=== PATIENT | male | born 1955 | race Caucasian/White ===

== ENCOUNTER → 2019-07-31 16:18 | Outpatient (CLI) | payer BC, SELFPAY ==
--- NOTE | 2019-07-31 16:22 | MR_ITS ---
PROCEDURE: MR LUMBAR SPINE WO CON CLINICAL INDICATION: LUMBAGO W/RT SIDE SCIATICA Low back pain with right-sided sciatica, right leg pain and foot numbness and tingling COMPARISON: No exams were available for comparison TECHNIQUE: Standard multiplanar multiecho sequences are performed without contrast. 3-D MIP and myelographic images are also rendered and reviewed FINDINGS: There is normal alignment. The spinal cord ends at the L1-L2 level. L1-L2: Unremarkable. L2-L3: Unremarkable. L3-L4: Unremarkable. L4-5: Unremarkable. L5-S1: Mild degenerative disc disease with bulging disc which is eccentric centrally and to the right along with facet and ligamentum hypertrophic change with resultant severe right-sided foraminal narrowing with impingement upon the exiting L5 nerve root. There is also mild impingement upon the right S1 nerve root. IMPRESSION: Degenerative disc disease at L5-S1 with bulging disc which is eccentric centrally and to the right along with facet and ligamentum hypertrophic change with resultant severe right-sided foraminal narrowing with impingement upon the exiting L5 nerve root. There is also mild impingement upon the right S1 nerve root No extruded herniated disc or canal stenosis Dictated by: Omkar Richards MD 08/01/2019 13:23 Electronically signed by Omkar Richards MD in [place] 08/01/2019 13:23
== END ==
PROVIDERS: PCP Internal Medicine; Visit Provider Internal Medicine
DX: M54.41 Lumbago with sciatica, right side (principal)
CPT/HCPCS: 72148; 76376

== ENCOUNTER → 2019-08-19 10:55 | Outpatient (POV) | payer BC, SELFPAY ==
[2019-08-19 11:17] VITALS: BP 152/78; PULSE 78; RESP 18; O2SAT 98; BMI 37.2
--- NOTE | 2019-08-26 15:03 | HMH.PMCON ---
Assessment and Plan (1) Degenerative disc disease Status: Chronic Qualifiers: Spinal region: lumbar Qualified Code(s): M51.36 - Other intervertebral disc degeneration, lumbar region Category: Medical (2) Lumbar radiculopathy Status: Chronic Category: Medical Code(s): M54.16 - Radiculopathy, lumbar region - Assessment and plan all Dx Assessment and Plan for all problems:: We will schedule an L4-L5 lumbar epidural steroid injection for the patient. I do believe it would be beneficial given his symptomology of the patient. I will follow-up with him after this reassess his symptoms at that time he is been instructed to call the office if he has any issues prior to his next appointment. Patient not currently on any anticoagulation therapy. Patient is continuing a home stretching program. Dr. Rajan has reviewed this note and agrees with this plan of care. This note was dictated using voice recognition software and may contain errors or omissions HPI - Data of Consult Patient: new to practice Consult date: 08/19/19 Requesting Physician: Ioana Castillo APRN Primary Care Provider: Roberto Osborne - Consult Narrative Reason for consult: Back pain History of present illness: Mr. Peters is a 63 year old male who presents today for consultation in regards to his low back pain. Patient has a recent MRI showing lumbar degenerative changes and nerve impingement in his lower spine. Patient has low back pain along with leg pain rating an 8 out of 10 today. Patient is tried and failed anti-inflammatories along with home stretching program. However he is continuing this. He is trying to stay as active as possible. He is not on any anticoagulation therapy. Overall patient is interested in injective therapy. I do believe an epidural may be beneficial for him. CC: Ioana Castillo APRN [facility] History I have reviewed the patient's past medical history: Yes Medical History: Reports:: Hyperlipidemia, Hypertension *Have you ever received a pneumonia vaccine?: Yes *Have you received a flu vaccine this season?: Yes Other Surgeries: Yes: Cardiac Catheterization Amputation: No Fractures: No - *Social History Smoking Status: Never smoker Alcohol Intake: never *Occupational Status:: other Housing: house Household Members: spouse *Travel in the last 8 weeks: None Family Hx:: Unable to obtain Review of Systems - Review of Systems ROS General: no recent weight change, no fever, no sleep disturbances Respiratory: no cough, no shortness of air, no recurring pulmonary infections Cardiovascular/Peripheral Vascular: No chest pain, No palpitations, no edema, no shortness of breath. Gastrointestinal: no new onset incontinence, normal bowel movements reported Genitourinary: no new onset incontinence Musculoskeletal: Back pain, leg pain Psychiatric: normal mood/ affect Neurological: [denies new onset weakness in extremities], [denies new onset balance issues] Objective Vital signs: Pulse Resp BP Pulse Ox 78 18 152/78 H 98 08/19/19 11:17 08/19/19 11:17 08/19/19 11:17 08/19/19 11:17 Narrative: Physical Exam General: Alert and oriented x3, no acute distress, pleasant and cooperative, [on room air] Lungs: Resps E/U, Symmetrical chest expansion, Eyes: PERRL Musculoskeletal: Flexion and extension of lumbar spine somewhat guarded secondary to pain, deep tendon reflexes normal, strength in upper and lower extremities [5/5], [abnormal gait noted] Neurological: speech clear, 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
== END ==
PROVIDERS: PCP Internal Medicine; Visit Provider Clinical Nurse Specialist Family Health
DX: M51.16 Intervertebral disc disorders with radiculopathy, lumbar region (principal)
CPT/HCPCS: 99202

== ENCOUNTER → 2019-09-30 10:39 | Outpatient (POV) | payer BC, SELFPAY ==
[2019-09-30 11:23] VITALS: BP 167/75; PULSE 65; RESP 18; O2SAT 98; BMI 35.1
--- NOTE | 2019-09-30 11:33 | HMH.PAINSOAP ---
[facility] Pain Management SOAP Note Subjective:: Patient is a pleasant 63-year-old white male who we are treating for low back pain with lumbar radiculopathy. Patient is following up after an L4-L5 lumbar epidural steroid injection. Patient states he got about 25% relief of his symptomology and his sharp pain has subsided. He still having a right leg numbness and and tingling. Patient and I discussed a transforaminal epidural he is interested in pursuing this. He rates his pain a 5 out of 10. He is not on any blood thinners. Patient is continuing a home stretching program. He is tried and failed other conservative measures including medications. He is on an anti-inflammatory. He has had pain for over 6 months. ROS General: no recent weight change, no fever, no sleep disturbances Respiratory: no cough, no shortness of air, no recurring pulmonary infections Cardiovascular/Peripheral Vascular: No chest pain, No palpitations, no edema, no shortness of breath. Gastrointestinal: no new onset incontinence, normal bowel movements reported Genitourinary: no new onset incontinence Musculoskeletal: Back pain, right leg pain Psychiatric: normal mood/ affect Neurological: [denies new onset weakness in extremities], [denies new onset balance issues] Objective:: Physical Exam General: Alert and oriented x3, no acute distress, pleasant and cooperative, [on room air] Lungs: Resps E/U, Symmetrical chest expansion, Eyes: PERRL Musculoskeletal: Flexion and extension of lumbar spine somewhat guarded secondary to pain, deep tendon reflexes normal, strength in upper and lower extremities [5/5], slightly antalgic gait noted, positive straight leg raise test on the right side at 30 degrees 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 I will follow-up with the patient afterwards reassess his symptoms at that time he is been instructed to call the office if he has any issues prior to his next appointment. If he does not get the relief that I suspect he will from this injection we discussed also potential other injections in the future. Dr. Rajan has reviewed this note and agrees with this plan of care. This note was dictated using voice recognition software and may contain errors or omissions [facility] History I have reviewed the patient's past medical history: Yes Medical History: Reports:: Hyperlipidemia, Hypertension Denies:: Diabetes Mellitus Type 1, Diabetes Mellitus Type 2 *Have you ever received a pneumonia vaccine?: Yes *Have you received a flu vaccine this season?: Yes Other Surgeries: Yes: Cardiac Catheterization Amputation: No Fractures: No - *Social History Smoking Status: Never smoker Alcohol Intake: never *Occupational Status:: other Housing: house Household Members: spouse *Travel in the last 8 weeks: None Family Hx:: Unable to obtain
== END ==
PROVIDERS: PCP Internal Medicine; Visit Provider Clinical Nurse Specialist Family Health
DX: M51.16 Intervertebral disc disorders with radiculopathy, lumbar region (principal)
CPT/HCPCS: 99212

== ENCOUNTER → 2019-12-13 10:39 | Outpatient (CLI) | payer BC, SELFPAY ==
--- NOTE | 2019-12-13 10:47 | CT_ITS ---
PROCEDURE: CT HEAD/BRAIN WO CON CLINICAL INDICATION: RT ARM TREMORS,LT SIDE FACE NUMBNESS,SLURRED SPEECH COMPARISON: No exams were available for comparison TECHNIQUE: Axial images obtained. All CT scans at the facility use one or more dose reduction, viz: automated exposure control, ma/kV adjustment per patient size (including targeted exams where dose is matched to indication, i.e. head), or iterative reconstruction technique. FINDINGS: No midline shift, mass effect, intracranial hemorrhage, hydrocephalus, or extra-axial fluid collection is evident. The calvarium has an unremarkable appearance. No mastoid effusion. No sinus air-fluid level. IMPRESSION: No acute intracranial finding Dictated by: Dr. Miguel Laughlin MD 12/13/2019 11:[address] Miguel Laughlin MD in [place] 12/13/2019 11:06
== END ==
PROVIDERS: PCP Internal Medicine; Visit Provider Internal Medicine
DX: R25.1 Tremor, unspecified (principal); R20.0 Anesthesia of skin; R47.81 Slurred speech
CPT/HCPCS: 70450

== ENCOUNTER → 2019-12-20 15:01 | Outpatient (CLI) | payer BC, SELFPAY ==
--- NOTE | 2019-12-20 15:10 | CA_ITS ---
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 Laterality: Bilateral Study Quality: Adequate Indications: Facial tingling Risk Factors Hypertension: Hyperlipidemia Doppler Spectral Velocity Analysis ECA (R) 107.70/18.70 cm/s ECA (L) 95.80/15.70 cm/s dICA (R) 50.50/16.30 cm/s dICA (L) 75.40/26.70 cm/s Pat (R) 47.50/19.20 cm/s Pat (L) 65.20/19.80 cm/s pICA (R) 46.60/16.70 cm/s pICA (L) 50.80/16.60 cm/s dCCA (R) 71.10/7.50 cm/s dCCA (L) 72.60/23.90 cm/s pCCA (R) 165.80/23.50 cm/s pCCA (L) 88.30/16.50 cm/s Vert (R) 24.10/ cm/s Vert (L) 39.80/13.60 cm/s ICA/CCA 0.70 ICA/CCA 1.00 Conclusion Duplex evaluation demonstrates stenosis of the right proximal internal carotid artery <20% with PSV <140 cm/sec, EDV <100 cm/sec, and IC/CC Ratio <4.0. Duplex evaluation demonstrates stenosis of the left proximal internal carotid artery in the range of 20-49% with PSV <140 cm/sec, EDV <100 cm/sec, and IC/CC Ratio <4.0, lower end of scale. Duplex evaluation demonstrates antegrade flow of the bilateral Vertebral Arteries. Electronically signed by : Omkar Richards MD 12/23/2019 18:27:47
== END ==
PROVIDERS: PCP Internal Medicine; Visit Provider Internal Medicine
DX: G45.9 Transient cerebral ischemic attack, unspecified (principal); R25.1 Tremor, unspecified
CPT/HCPCS: 93880

== ENCOUNTER → 2020-05-25 11:26 | Outpatient (CLI) | payer BC, SELFPAY ==
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
== END ==
PROVIDERS: PCP Internal Medicine; Visit Provider Internal Medicine
DX: R07.89 Other chest pain (principal)
CPT/HCPCS: 71046; 71100

== ENCOUNTER → 2020-08-03 10:35 | Outpatient (POV) | payer BC, SELFPAY ==
[2020-08-03 11:41] VITALS: BP 125/85; PULSE 85; RESP 18; O2SAT 98; BMI 34.9
--- NOTE | 2020-08-03 12:28 | HMH.PAINSOAP ---
[facility] Pain Management SOAP Note Subjective:: Patient is a pleasant 64-year-old white male who presents today for follow-up. Patient was last seen back in October. Patient had several epidural steroid injections which did give him some relief however his last transforaminal epidural injection gave him 90% relief for over 8 months. Patient would like to repeat a right-sided transforaminal epidural steroid injection at the L4-L5 L5-S1 space. Patient's not on any anticoagulation therapy. He rates his pain today 5 out of 10. Mostly in his back and right leg. ROS General: no recent weight change, no fever, no sleep disturbances Respiratory: no cough, no shortness of air, no recurring pulmonary infections Cardiovascular/Peripheral Vascular: No chest pain, No palpitations, no edema, no shortness of breath. Gastrointestinal: no new onset incontinence, normal bowel movements reported Genitourinary: no new onset incontinence Musculoskeletal: Back pain, leg pain Psychiatric: normal mood/ affect Neurological: [denies new onset weakness in extremities], [denies new onset balance issues] Objective:: Physical Exam General: Alert and oriented x3, no acute distress, pleasant and cooperative, [on room air] Lungs: Resps E/U, Symmetrical chest expansion, Eyes: PERRL Musculoskeletal: Flexion and extension of lumbar spine somewhat guarded secondary to pain, deep tendon reflexes normal, strength in upper and lower extremities [5/5], antalgic gait noted Neurological: 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 Given the efficacy of the last one I do believe that this would benefit him. I will follow-up with him after his injection reassess his symptoms at that time he has been instructed to call the office if he has any issues prior to his next appointment. Dr. Rajan has reviewed this note and agrees with this plan of care. This note was dictated using voice recognition software and may contain errors or omissions [facility] History I have reviewed the patient's past medical history: Yes Medical History: Reports:: Hyperlipidemia, Hypertension Denies:: Cancer, Diabetes Mellitus Type 1, Diabetes Mellitus Type 2, Seizures *Have you ever received a pneumonia vaccine?: Yes *Have you received a flu vaccine this season?: Yes Other Medical History: Denies: Blood Transfusion Reaction Other Surgeries: Yes: Cardiac Catheterization Amputation: No Fractures: No - *Social History Smoking Status: Never smoker Alcohol Intake: never *Occupational Status:: other Housing: house Household Members: spouse *Travel in the last 8 weeks: None Family Hx:: Unable to obtain
== END ==
PROVIDERS: PCP Internal Medicine; Visit Provider Clinical Nurse Specialist Family Health
DX: M51.16 Intervertebral disc disorders with radiculopathy, lumbar region (principal)
CPT/HCPCS: 99212

== ENCOUNTER 2020-08-14 11:32 | Day surgery (SDC) | payer BC, SELFPAY ==
[2020-08-14 12:07] VITALS: BP 141/69; PULSE 60; RESP 18; TEMP 36.7; O2SAT 95; BMI 35.4
[2020-08-14 12:30] VITALS: BP 132/74; PULSE 85; RESP 18; O2SAT 98
[2020-08-14 12:33] VITALS: BP 138/78; PULSE 85; RESP 18; O2SAT 98
--- NOTE | 2020-08-14 12:38 | P.PCN_ITS ---
- Procedure Date: 08/14/20 Time: 12:38 Anesthesiologist:: Gabriel Rajan MD Complications:: None Pre-procedure Diagnosis:: Degenerative disc disease of the lumbar spine with right leg lumbar radicular symptoms Post-procedure Diagnosis:: Same Indications for Procedure:: This patient is a pleasant 64-year-old white male who we are treating for low back pain and right leg radicular symptoms. He previously had a right-sided L4- 5 and L5-S1 transforaminal epidural steroid injection which gave him 8 months pain relief. His pain is now starting to return. We will plan on a repeat right L4-L5 and L5-S1 transforaminal epidural steroid injection under fluoroscopy today. Procedure Details:: Transforaminal epidural steroid injection Informed consent was obtained and the risk and benefits of the procedure was explained to the patient. Patient was taken to the procedure room. The low back was prepped using ChloraPrep. 22-gauge spinal needles were placed into the intervertebral foramen of L4-5 and L5-S1 on the right side. Needle placement was confirmed with dye. After this we injected 5 mL bupivacaine 0.25% and Depo- Medrol 40 mg into each right transforaminal epidural space of L4-5 and L5-S1. We used a total of 80 mg Depo-Medrol for both levels. Patient tolerated the procedure well with no complications. Plan and Disposition:: We will follow-up with this patient in 2 weeks. Will reevaluate his symptoms at that time.
[2020-08-14 12:44] VITALS: BP 147/83; PULSE 60; RESP 18; O2SAT 99
== END 2020-08-14 12:45 | disposition home or self-care (01) ==
LOC: SC.PAINP 11:34
PROVIDERS: PCP Internal Medicine; Visit Provider Anesthesiology
DX: M51.16 Intervertebral disc disorders with radiculopathy, lumbar region (principal); E78.5 Hyperlipidemia, unspecified; F41.9 Anxiety disorder, unspecified; Z82.49 Family history of ischemic heart disease and other diseases of the circulatory system; Z79.899 Other long term (current) drug therapy
CPT/HCPCS: 64483; 64484; J1030; Q9966

== ENCOUNTER → 2020-10-01 09:39 | Outpatient (POV) | payer BC, SELFPAY ==
[2020-10-01 09:55] VITALS: BP 135/88; PULSE 71; RESP 18; O2SAT 98; BMI 35.7
--- NOTE | 2020-10-01 10:06 | HMH.PAINSOAP ---
[facility] Pain Management SOAP Note Subjective:: Patient is a 64-year-old white male who presents today for follow-up. He has been treated for chronic low back pain with right leg pain. Patient recently underwent a transforaminal epidural steroid injection. Patient says that he did not get any relief following the injection. He says that his pain is now worse in comparison to before the injection. He does rate his pain an 8 out of 10 today. He has been taking large doses of ibuprofen for pain relief and has been advised by his primary care provider to stop taking anti-inflammatories. He has tried physical therapy with little to no relief. Patient says that his pain is progressively getting worse to the point he is now limping on the right leg. He has tenderness noted over his right SI joint that he reports to be very tender to palpation. The pain does radiate to his right buttock and right lateral thigh area crossing over medially into the right calf area and to the top of the foot. He says the pain is very bad with standing and walking as well as when he is laying down at night. Review of Systems General: No recent weight changes, no fever, no sleep disturbances Respiratory: No cough, no shortness of air, no recurring pulmonary infections Cardiovascular/peripheral vascular: No chest pain, no palpitations, no edema, no shortness of breath Gastrointestinal: No new onset incontinence, normal bowel movements reported Genitourinary: No new onset incontinence Musculoskeletal: Low back pain radiating into right buttock, right leg Psychiatric: Normal mood/affect Neurological: [Denies weakness in extremities], [denies balance issues] Objective:: Physical exam General: Alert and oriented x3, no acute distress, pleasant and cooperative, [on room air] Lungs: Respirations even and unlabored, symmetrical chest expansion Eyes: PERRL Musculoskeletal: Flexion and extension of lumbar spine somewhat guarded secondary to pain, deep tendon reflexes normal, strength in upper and lower extremities [5/5], [abnormal gait noted] positive Carlos's test, positive distraction test, positive compression test Neurological: 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 He does have tenderness noted over his right SI joint. He also has a positive Carlos's, compression, and distraction test. We will also give the patient a month of tramadol. He has been advised to stop taking anti-inflammatories. He understands we will not be able to give him any further medication after his injection. He is in agreement. Patient says he does not like taking opiates. He is concerned that tramadol will make him nauseous. He says he will try to take the medication to see if it helps, however. He does report that his has muscle relaxers that he will also try to take if the tramadol makes him sick. Patient has been educated that the medication has not been prescribed to him and may cause side effects. We will see him back after his SI injection to reassess his symptoms. He has been instructed to contact clinic if he has any concerns before his next appointment. The patient and I specifically discussed risk factors for COVID19. These risks include, but are not limited to age greater than 60, heart or lung disease, diabetes, immunosuppression, and travel. We also discussed NSAIDs may worsen COVID19 infection or symptoms. Patient should not use NSAIDs to treat COVID19 signs or symptoms. Patient was also informed that any type of corticosteroid of any form (oral or injection) will decrease the patient's immune system response and may increase the likelihood of COVID19 infection and symptoms. [facility] History I have reviewed the patient's past medical history: Yes Medical History: Reports:: Hyperlipidemia, Hypertension Denies:: Cancer, Diabetes Mellitus Type 1, Diabetes Sandra
== END ==
PROVIDERS: PCP Internal Medicine; Visit Provider Clinical Nurse Specialist Family Health
DX: M46.1 Sacroiliitis, not elsewhere classified (principal)
CPT/HCPCS: 99212

== ENCOUNTER 2020-10-05 15:35 | Day surgery (SDC) | payer BC, SELFPAY ==
[2020-10-05 15:54] VITALS: BP 158/93; PULSE 61; RESP 18; TEMP 36.8; O2SAT 98; BMI 36.5
--- NOTE | 2020-10-05 16:08 | HMH.PMPROC ---
- Procedure Date: 10/05/20 Time: 16:17 Anesthesiologist:: Ioana Castillo APRN Complications:: None Pre-procedure Diagnosis:: Sacroiliitis Post-procedure Diagnosis:: Same Indications for Procedure:: Patient is a pleasant 64-year-old white male who presents today for follow-up. He is being treated for chronic low back and right leg pain. He recently underwent a transforaminal epidural steroid injection. Patient states his radicular symptomology changed after this. He rates his pain today an 8 out of 10. He has a positive SI joint compression test, Matias test Carlos's test and distraction test on the right side. Procedure Details:: Informed consent was obtained and the risks and benefits of the procedure were explained to the patient. Patient was taken to the procedure room. Patient was placed prone on the procedure table. The [right] hip was prepped using ChloraPrep as a cleansing solution. The skin and subcutaneous tissues were anesthetized using lidocaine. Using fluoroscopic guidance I placed a 22-gauge spinal needle into the inferior aspect of the [right] SI joint. After this I injected 5 mL bupivacaine 0.25% and Depo-Medrol 40 mg into the [right] SI joint. The patient tolerated the procedure well with no complication. Plan and Disposition:: We will see the patient back in several weeks reassess his symptoms at that time he has been instructed to call the office if he has any issues prior to his next appointment. Dr. Rajan has reviewed this note and agrees with this plan of care. This note was dictated using voice recognition software and may contain errors or omissions
[2020-10-05 16:13] VITALS: BP 125/85; PULSE 74; RESP 18; O2SAT 98
[2020-10-05 16:14] VITALS: BP 129/87; PULSE 74; RESP 18; O2SAT 98
[2020-10-05 16:24] VITALS: BP 124/85; PULSE 67; RESP 18; O2SAT 98
== END 2020-10-05 16:26 | disposition home or self-care (01) ==
LOC: SC.PAINP 15:37
PROVIDERS: PCP Internal Medicine; Visit Provider Clinical Nurse Specialist Family Health
DX: M46.1 Sacroiliitis, not elsewhere classified (principal); I25.10 Atherosclerotic heart disease of native coronary artery without angina pectoris; E78.5 Hyperlipidemia, unspecified; I10 Essential (primary) hypertension; K21.9 Gastro-esophageal reflux disease without esophagitis; F41.9 Anxiety disorder, unspecified
CPT/HCPCS: 27096; G0260; J1040; Q9966

== ENCOUNTER → 2021-07-28 15:35 | Outpatient (CLI) | payer BC, SELFPAY ==
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
== END ==
LOC: RAD 15:37
PROVIDERS: PCP Internal Medicine; Visit Provider Internal Medicine
DX: M54.2 Cervicalgia (principal); R07.89 Other chest pain; V89.2XXA Person injured in unspecified motor-vehicle accident, traffic, initial encounter
CPT/HCPCS: 71046; 72050

== ENCOUNTER → 2021-11-10 11:29 | Outpatient (CLI) | payer BC, SELFPAY ==
[2021-11-10 14:03] LABS: Chloride 102 mmol/L (98-107); Potassium 3.8 mmoL/L (3.5-5.1); Sodium 138 mmol/L (136-145)
[2021-11-10 14:06] LABS: Alanine Aminotransferase 53 U/L (12-78); Albumin Level 4.9 g/dl (3.5-5.0); Albumin/Globulin Ratio 1.8 (1.1-1.8); Alkaline Phosphatase 72 U/L (38-126); Anion Gap 13.8 mEq/L (5-15); Aspartate Amino Transferase 67 U/L (17-59); Bilirubin,Total 0.7 mg/dl (0.2-1.3); Blood Urea Nitrogen 17 mg/dl (9-20); Calcium 9.1 mg/dl (8.4-10.2); Carbon Dioxide 26 mmol/L (22.0-30.0); Chol/HDL Ratio 3.3 (1-3.5); Cholesterol 164 mg/dl (140-200); Estimated Glomerular Filt Rate 97 ml/min (>60); GFR (African American) 118 ML/MIN (>60); Globulin 2.8 g/dL (1.3-3.2); Glucose 89 mg/dl (74-100); HDL Cholesterol 49 mg/dl (40-60); Total Protein,Serum 7.7 g/dl (6.3-8.2); Triglycerides 93 mg/dl (30-150); VLDL Cholesterol 19 mg/dL (0-40)
== END ==
PROVIDERS: Internal Medicine Cardiovascular Disease; Visit Provider Internal Medicine
DX: I25.10 Atherosclerotic heart disease of native coronary artery without angina pectoris (principal); I10 Essential (primary) hypertension; E78.5 Hyperlipidemia, unspecified; F41.9 Anxiety disorder, unspecified
CPT/HCPCS: 80053; 80061

== ENCOUNTER → 2022-10-04 12:23 | Outpatient (CLI) | payer BC, SELFPAY ==
[2022-10-04 13:44] LABS: Chloride 102 mmol/L (98-107)
[2022-10-04 13:45] LABS: Sodium 139 mmol/L (136-145)
[2022-10-04 13:47] LABS: Alanine Aminotransferase 87 U/L (12-78); Alkaline Phosphatase 71 U/L (38-126); Aspartate Amino Transferase 90 U/L (17-59); Bilirubin,Total 0.6 mg/dl (0.2-1.3); Blood Urea Nitrogen 12 mg/dl (9-20); Estimated Glomerular Filt Rate 85 ml/min (>60); GFR (African American) 103 ML/MIN (>60)
[2022-10-04 13:48] LABS: Albumin Level 4.9 g/dl (3.5-5.0); Albumin/Globulin Ratio 1.7 (1.1-1.8); Calcium 10.7 mg/dl (8.4-10.2); Carbon Dioxide 25 mmol/L (22.0-30.0); Chol/HDL Ratio 4.4 (1-3.5); Cholesterol 167 mg/dl (140-200); Globulin 2.9 g/dL (1.3-3.2); Glucose 93 mg/dl (74-100); HDL Cholesterol 38 mg/dl (40-60); Total Protein,Serum 7.8 g/dl (6.3-8.2); Triglycerides 138 mg/dl (30-150); VLDL Cholesterol 28 mg/dL (0-40)
[2022-10-04 13:59] LABS: Direct LDL Cholesterol 89.13 mg/dL (100-129)
[2022-10-04 14:25] LABS: Prostate Specific Ag Screen 0.4 ng/ml (0.0-4.0)
== END ==
LOC: LAB.DROPOF 12:24
PROVIDERS: PCP Internal Medicine; Visit Provider Internal Medicine
DX: D48.5 Neoplasm of uncertain behavior of skin (principal); I25.10 Atherosclerotic heart disease of native coronary artery without angina pectoris; I10 Essential (primary) hypertension; E78.5 Hyperlipidemia, unspecified; Z12.5 Encounter for screening for malignant neoplasm of prostate
CPT/HCPCS: 80053; 80061; G0103

== ENCOUNTER 2022-10-18 00:34 | Emergency (ER) | payer BC, SELFPAY ==
[2022-10-18 00:40] VITALS: BMI 28.7
[2022-10-18 00:53] VITALS: BP 140/81; PULSE 55; RESP 18; TEMP 36.8; O2SAT 98; BMI 34.9
[2022-10-18 00:53] LABS: Microscopic, Urine URINE MICROSCOPIC (MICROSCOPIC)
[2022-10-18 00:58] LABS: Appearance,Urine CLEAR (Clear); Blood, Urine 3+ (Negative); Color,Urine YELLOW (Yellow); Glucose,Urine (UA) Negative (Negative); Ketones,Urine TRACE (Negative); Leukocyte Esterase,Urine Negative (Negative); Nitrate,Urine Negative (Negative); Protein,Urine Negative (Negative); Specific Gravity, Urine >= 1.030 (1.005-1.030)
[2022-10-18 00:59] LABS: Basophils # 0.1 K/mm3 (0-0.2); Basophils % 1.3 % (0.1-2.0); Eosinophils # 0.2 K/mm3 (0.0-0.4); Hematocrit 42.6 % (42.0-52.0); Hemoglobin 14.4 g/dL (14.1-18.0); Lymphocytes # 1.8 K/mm3 (0.7-4.5); Mean Corpuscular HGB Conc 33.8 g/dL (31.8-35.4); Mean Corpuscular Hemoglobin 29.1 pg (27.0-31.2); Mean Corpuscular Volume 86.1 fl (80-94); Mean Platelet Volume 7.9 fl (7.4-10.4); Monocytes # 0.6 K/mm3 (0.1-1.0); Monocytes % 7.7 % (1.7-9.3); Neutrophils # 5.3 K/mm3 (1.8-7.8); Neutrophils % 66.1 % (37.0-80.0); Platelet Count 210 K/mm3 (142-424); Red Blood Count 4.95 M/mm3 (4.60-6.20); Red Cell Distribution Width 14.2 % (11.5-17.5)
[2022-10-18 01:00] VITALS: BP 123/66; PULSE 51; RESP 16; O2SAT 98
[2022-10-18 01:00] LABS: Bilirubin,Urine Negative (Negative)
[2022-10-18 01:01] LABS: Chloride 105 mmol/L (98-107); Potassium 3.7 mmoL/L (3.5-5.1); Sodium 140 mmol/L (136-145)
[2022-10-18 01:03] LABS: Alanine Aminotransferase 55 U/L (12-78); Aspartate Amino Transferase 54 U/L (17-59); Blood Urea Nitrogen 18 mg/dl (9-20); Creatinine Clearance Estimated 110 mL/min (50-200); Estimated Glomerular Filt Rate 75 ml/min (>60); GFR (African American) 91 ML/MIN (>60)
[2022-10-18 01:04] LABS: Albumin Level 4.6 g/dl (3.5-5.0); Albumin/Globulin Ratio 1.5 (1.1-1.8); Alkaline Phosphatase 71 U/L (38-126); Anion Gap 11.7 mEq/L (5-15); Bilirubin,Total 0.4 mg/dl (0.2-1.3); Calcium 9.2 mg/dl (8.4-10.2); Carbon Dioxide 27 mmol/L (22.0-30.0); Globulin 3.1 g/dL (1.3-3.2); Glucose 121 mg/dl (74-100); Total Protein,Serum 7.7 g/dl (6.3-8.2)
[2022-10-18 01:14] LABS: Bacteria,Urine 1+ /lpf; Mucus,Urine 1+ /lpf; RBC,Urine 20-50 #/hpf (0-3); WBC,Urine Occasional #/hpf (0-3)
[2022-10-18 01:31] VITALS: BP 117/60; PULSE 60; RESP 16; O2SAT 96
--- NOTE | 2022-10-18 01:32 | CT_ITS ---
PROCEDURE INFORMATION: Exam: CT Abdomen And Pelvis Without Contrast Exam date and time: 10/18/2022 1:40 AM Age: 66 years old Clinical indication: Abdominal pain; Localized; Patient HX: PT C/O left lower flank pain worsening tonight. States he has a history of kidney stones. ; Additional info: Flank pain, gross hematuria TECHNIQUE: Imaging protocol: Computed tomography of the abdomen and pelvis without contrast. Radiation optimization: All CT scans at this facility use at least one of these dose optimization techniques: automated exposure control; mA and/or kV adjustment per patient size (includes targeted exams where dose is matched to clinical indication); or iterative reconstruction. COMPARISON: MR LUMBAR SPINE WO CON 07/31/2019 4:33 PM FINDINGS: Heart: There is mild enlargement of the heart. Liver: Normal. No mass. Gallbladder and bile ducts: Normal. No calcified stones. No ductal dilation. Pancreas: Normal. No ductal dilation. Spleen: There are granulomas of the spleen. Adrenal glands: Normal. No mass. Kidneys and ureters: Multiple right kidney nonobstructing stones measuring up to 7 mm in size. Left kidney punctate nonobstructing stones. Mild left hydronephrosis and hydroureter secondary to a mid ureteral 4 mm stone. Stomach and bowel: Diverticulosis. Appendix: Normal appendix. Intraperitoneal space: Unremarkable. No free air. No significant fluid collection. Vasculature: Mild atherosclerosis. Lymph nodes: Unremarkable. No enlarged lymph nodes. Urinary bladder: Unremarkable as visualized. Reproductive: Unremarkable as visualized. Bones/joints: Degenerative changes of the spine. Soft tissues: Unremarkable. IMPRESSION: Mild left hydronephrosis secondary to a mid left ureteral 4 mm stone. Bilateral nephrolithiasis.
[2022-10-18 01:46] VITALS: BP 126/63; PULSE 54; RESP 18; O2SAT 98
[2022-10-18 02:00] VITALS: BP 125/71; PULSE 66; RESP 16; O2SAT 98
--- NOTE | 2022-10-18 03:11 | HMH.EDBACK ---
Discharge Plan Disposition Patient Disposition: Home, Self-Care Chief Complaint: Back Pain/Injury Prescriptions Prescriptions: No Action alprazolam 1 mg tablet 1 mg PO TID tizanidine 4 mg tablet 4 mg PO DAILY clopidogrel 75 mg tablet 75 mg PO DAILY tamsulosin 0.4 mg capsule 0.4 mg PO DAILY hydrochlorothiazide 25 mg tablet 25 mg PO DAILY rosuvastatin 20 mg tablet 20 mg PO DAILY Referrals Follow up/Referrals: Roberto Osborne MD [Primary Care Provider] - See instructions Chai Avery MD [Referring] - See instructions Clinical Impressions Clinical Impression: Renal colic Stand Alone Forms Stand Alone Forms: Work/School Release Instructions Patient Instructions: Kidney Stones -- Adult Discharge ED Provider: Jasiel Benavides Back Pain HPI General Chief Complaint: Back Pain/Injury Stated Complaint: possible kidney stone Time Seen by Provider: 10/18/22 03:11 Mode of Arrival: Ambulatory Source of Information: Patient and Medical Record Limitations: No Limitations Description of Symptoms (Recalled from ER Triage Doc. by RN): Pt c/o left lower back pain that radiates into his left flank. States that he has been having slight back pain for the prior two weeks, however, for the last 24 hours his pain has been more severe and he believes that he has blood in his urine. History of Present Illness HPI Narrative: acute lt lower pain and lt flank pain - hx of kidney stones - blood in urine Complaint: back pain Onset (ago): hour(s) Duration: intermittent Location: left flank Severity: moderate Associated symptoms: denies other symptoms Related Data Home Medications Medication Instructions Recorded Confirmed alprazolam 1 mg tablet 1 mg PO TID Anxiety 10/18/22 10/18/22 clopidogrel 75 mg tablet 75 mg PO DAILY hld 10/18/22 10/18/22 hydrochlorothiazide 25 mg tablet 25 mg PO DAILY htn 10/18/22 10/18/22 rosuvastatin 20 mg tablet 20 mg PO DAILY hld 10/18/22 10/18/22 tamsulosin 0.4 mg capsule 0.4 mg PO DAILY urinary retention 10/18/22 10/18/22 tizanidine 4 mg tablet 4 mg PO DAILY muscle relaxer 10/18/22 10/18/22 Allergies Allergy/AdvReac Type Severity Reaction Status Date / Time No Known Allergies Allergy Verified 10/05/20 15:56 [facility] Disclaimer: The information contained in this section may have been updated after the patient was seen, as this information can be updated by other users. 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 current occupational exposures/hazards: No caffeine: Yes ROS Obtained: Yes All systems reviewed & no additional complaints except as documented Physical Exam General General appearance: alert Head Head exam: normocephalic Eye Eye exam: Present PERRL and EOMI ENT ENT exam: Present mucous membranes moist Neck Neck exam: Present trachea midline Respiratory Respiratory exam: Absent respiratory distress Cardiovascular Cardiovascular exam: Present regular rate Abdominal Exam Abdominal exam: Present soft Extremities Exam Extremities exam: Present full ROM Neurological Exam Neurological exam: Present alert, oriented X3 and CN II-XII intact Psychiatric Psychiatric exam: Present normal affect Skin Skin exam: Absent rash Medical Decision Making Medical Records Medical records reviewed: Yes I reviewed the patient's medical records. [facility] Inquiry Pt receiving controlled substance: No Vital Signs: 10/18/22 00:53 10/18/22 01:00 10/18/22 01:31 Temperature 98.2 F Temperature Source Oral Pulse Rate 51 L 60 Pulse Rate [Apical] 55 L Respiratory Rate 18 16 16 Blood Pressure 123/66 117/60 Blood Pressure [Right Arm] 140/81 Blood Pressure Mean 90 79 Blood Pressure Mean [Right Arm] 100 Blood Pressure Source Blood Pre
[2022-10-18 03:37] VITALS: BP 125/70; PULSE 65; RESP 18; TEMP 36.6; O2SAT 98
== END 2022-10-18 04:34 | disposition home or self-care (01) ==
PROVIDERS: Emergency Provider Emergency Medicine; PCP Internal Medicine
DX: N23 Unspecified renal colic (principal)
CPT/HCPCS: 74176; 80053; 81001; 85025; 96361; 96374; 96375; 99285; J2405

== ENCOUNTER → 2023-07-24 10:37 | Outpatient (CLI) | payer OTHER, SELFPAY ==
[2023-07-24 11:09] LABS: Basophils # 0.1 K/mm3 (0-0.2); Basophils % 0.9 % (0.1-2.0); Eosinophils # 0.1 K/mm3 (0.0-0.4); Eosinophils % 1.8 % (0.1-12.0); Hematocrit 37.4 % (42.0-52.0); Hemoglobin 13.1 g/dL (14.1-18.0); Lymphocytes # 1.6 K/mm3 (0.7-4.5); Lymphocytes % 24.7 % (10-50); Mean Corpuscular HGB Conc 35.1 g/dL (31.8-35.4); Mean Corpuscular Hemoglobin 30.8 pg (27.0-31.2); Mean Corpuscular Volume 87.9 fl (80-94); Monocytes # 0.4 K/mm3 (0.1-1.0); Monocytes % 6.6 % (1.7-9.3); Neutrophils # 4.2 K/mm3 (1.8-7.8); Neutrophils % 65.9 % (37.0-80.0); Platelet Count 197 K/mm3 (142-424); Red Blood Count 4.26 M/mm3 (4.60-6.20); Red Cell Distribution Width 13.7 % (11.5-17.5); White Blood Count 6.4 K/mm3 (4.8-10.8)
[2023-07-24 12:34] LABS: Alanine Aminotransferase 63 U/L (12-78); Albumin Level 4.5 g/dl (3.5-5.0); Albumin/Globulin Ratio 1.5 (1.1-1.8); Alkaline Phosphatase 77 U/L (38-126); Anion Gap 15.6 mEq/L (5-15); Aspartate Amino Transferase 66 U/L (17-59); Bilirubin,Total 0.3 mg/dl (0.2-1.3); Blood Urea Nitrogen 14 mg/dl (9-20); Calcium 9.4 mg/dl (8.4-10.2); Carbon Dioxide 27 mmol/L (22.0-30.0); Chloride 100 mmol/L (98-107); Estimated Glomerular Filt Rate 97 ml/min (>60); GFR (African American) 117 ML/MIN (>60); Glucose 116 mg/dl (74-100); Potassium 3.6 mmoL/L (3.5-5.1); Sodium 139 mmol/L (136-145); Total Protein,Serum 7.5 g/dl (6.3-8.2)
== END ==
PROVIDERS: PCP Internal Medicine; Visit Provider Internal Medicine
DX: K62.5 Hemorrhage of anus and rectum (principal); I10 Essential (primary) hypertension; I25.10 Atherosclerotic heart disease of native coronary artery without angina pectoris
CPT/HCPCS: 80053; 85025

== ENCOUNTER 2023-07-28 11:35 | Day surgery (SDC) | payer MEDICARE, SELFPAY ==
[2023-07-26 17:38] VITALS: BMI 35.7
[2023-07-28] VITALS (7 sets, daily range): BP systolic 116–158; BP diastolic 56–82; PULSE 49–72; RESP 18; TEMP 36.2–36.4; O2SAT 96–967
--- NOTE | 2023-07-28 12:27 | EXP.ANES.CKL ---
[facility] Disclaimer: The information contained in this section may have been updated after the patient was seen, as this information can be updated by other users. 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 current occupational exposures/hazards: No caffeine: Yes [facility] Anesthesia Checklist Patient Identification Patient Identification: Arm Band and Verbal (Name & ) Structural Data Admitted From: Home Planned Operative Procedure/s: Colonoscopy Consent for Planned Operative Procedure(s) Verified: Yes NPO Status Verified Time NPO: 00:00 Additional verifications Anesthesia Reactions: No Hx Blood Transfusions: No Blood Transfusion Reaction: No Airway Assessment Mallampati Score:: Class II C-Spine Mobility Assessed: Yes TMJ Mobility Assessed: Yes Dentition: Good Dentition Neurological Assessment Level of Consciousness: Awake Hx Seizures: No Numbness or tingling in extremities: No Anesthesia Plan Anesthesia Risk discussed: Yes Anesthesia Plan: Verified ASA Class: II Anesthesia Type: MAC
--- NOTE | 2023-07-28 14:38 | HMH.SCOPE ---
Procedure: Date: 07/28/23 Patient Date of :: 1955 Procedure Performed:: Total colonoscopy to terminal ileum with numerous polypectomy using hot snare and cold snare with tattoo marking of colon at site of the mass and Hemoclip deployment Indications:: Patient is a 67-year-old male referred by Dr. Roberto Osborne for rectal bleeding. He was seen in the office a few days ago. I had previously seen the patient for screening colonoscopy which was performed in 2007. He had no adenomatous polyps and follow-up colonoscopy was recommended for 10 years. Patient has not had a subsequent colonoscopy. He states that several days ago beginning on approximately 07/21/2023 he developed rectal bleeding. This was characterized as relatively fresh blood as loose stool. He had no severe pain but had some lower abdominal cramping. He does normally take Plavix. He has been off of this. He states that the bleeding may be decreasing. He has had some blood mixed with stool. Etiology was unclear. I felt that colonoscopy was warranted as it had been 15 years since prior colonoscopy. This was to be arranged expeditiously given his symptomatology. Performing Provider:: Zack Barboza MD Referring Provider:: Roberto Osborne MD Sedation:: MAC sedation Procedure:: Patient history was obtained and appropriate physical examination was performed. Patient's medications and allergies were reviewed. Informed consent was obtained after explaining the benefits, alternatives, and risks of the procedure including, but not limited to, bleeding, perforation, missed lesions, and adverse reaction to anesthesia medications. Patient was transported to endoscopy procedure room. Patient was connected to monitoring devices. Throughout the procedure the patient's blood pressure, pulse, and oxygen saturations were monitored continuously. Patient identification and planned procedure were verified by the staff. Patient was positioned in lateral decubitus position. Digital anorectal exam was performed. Variable stiffness Olympus colonoscope was inserted and advanced under direct visualization to the cecum. Adequacy of the colonic preparation was noted. The colonoscope was advanced a short distance into the terminal ileum. The colonoscope was then slowly withdrawn while carefully examining the color, texture, anatomy, and integrity of the mucosoa circumferentially. Within the rectum retroflexion was performed. Colonoscope was then withdrawn. . . IMPRESSION: Colonoscope was inserted and advanced to the cecum. Upon insertion of the colonoscope there was noted to be multiple large complex polyps throughout the colon. Most notable was what appeared to be sigmoid colon mass. Due to the prolapsing nature of this it was difficult to determine the exact site but this appeared to be approximately 50 cm or greater from the anus. The colonoscope was advanced into the terminal ileum which appeared grossly normal. In the ascending colon there was a adenomatous appearing polyp removed with cold snare. At the hepatic flexure there was adenomatous sessile polyp removed with cold snare with residual tissue removed with biopsy forceps. In the proximal transverse colon just distal to the hepatic flexure there were a couple of moderate adenomatous polyps removed with hot snare. In the proximal descending colon there were a couple of adenomatous polyps removed with hot snare. Distal descending colon there were a couple of adenomatous polyps removed with hot snare. In the proximal sigmoid colon there was an adenomatous polyp removed with hot snare. In the presumed sigmoid colon at approximately 50 cm or more as previously mentioned there was what appeared to be adenomatous mass. This was proven to be actually 2 masses on adjacent pedunculated stalk. In a prolonged piecemeal fashion using hot snare ultimately all of the adenomatous tissue was excised from the pedunculated stalk. This required ret
== END 2023-07-28 16:00 | disposition home or self-care (01) ==
PROVIDERS: PCP Internal Medicine; Visit Provider Surgery
PROC: 0DJD8ZZ Inspection of Lower Intestinal Tract, Via Natural or Artificial Opening Endoscopic (ICD-10-PCS; CPT 45380; principal; 2023-07-28 13:00)
DX: D12.2 Benign neoplasm of ascending colon (principal); D12.3 Benign neoplasm of transverse colon; D12.4 Benign neoplasm of descending colon; D12.5 Benign neoplasm of sigmoid colon; D12.7 Benign neoplasm of rectosigmoid junction; K57.30 Diverticulosis of large intestine without perforation or abscess without bleeding
CPT/HCPCS: 45380; 45385; 88305; J2704

== ENCOUNTER 2023-09-25 11:52 | Emergency (ER) | payer MEDICARE, SELFPAY ==
[2023-09-25 11:53] VITALS: BP 138/77; PULSE 56; RESP 20; TEMP 36.4; O2SAT 96; BMI 33.1
--- NOTE | 2023-09-25 12:00 | ECG_ITS ---
APPROVED REPORT Exam: Resting ECG HR:57 bpm ECG Measurements Heart Rate 57 AXES PA 173 P 70 QRSd 121 QRS 61 QT 440 T 61 QTc 435 Conclusion SINUS BRADYCARDIA POSSIBLE RIGHT VENTRICULAR CONDUCTION DELAY [RSR (QR) IN V1/V2] BORDERLINE ECG UNCONFIRMED REPORT Electronically signed by : Lupillo Carter MD 09/25/2023 14:43:39
--- NOTE | 2023-09-25 12:19 | XR_ITS ---
FINAL REPORT TECHNIQUE: Single view chest CLINICAL HISTORY: SOA COMPARISON: 07/28/2021 FINDINGS: A single view of the chest was obtained. The heart and mediastinum are within normal limits. The lungs are clear. There is no pneumothorax. Osseous structures are unremarkable. IMPRESSION: No acute cardiopulmonary process. Reviewed, Interpreted and Dictated by Shar Steward MD Transcribed by Parul Nice Authenticated and [facility]
[2023-09-25 12:30] LABS: Basophils % 0.7 % (0.1-2.0); Eosinophils # 0.1 K/mm3 (0.0-0.4); Eosinophils % 1.5 % (0.1-12.0); Hematocrit 36.2 % (42.0-52.0); Hemoglobin 11.9 g/dL (14.1-18.0); Lymphocytes # 1.8 K/mm3 (0.7-4.5); Lymphocytes % 28.3 % (10-50); Mean Corpuscular HGB Conc 32.9 g/dL (31.8-35.4); Mean Corpuscular Hemoglobin 25.5 pg (27.0-31.2); Mean Corpuscular Volume 77.4 fl (80-94); Mean Platelet Volume 7.4 fl (7.4-10.4); Monocytes # 0.5 K/mm3 (0.1-1.0); Monocytes % 7.9 % (1.7-9.3); Neutrophils # 3.9 K/mm3 (1.8-7.8); Neutrophils % 61.6 % (37.0-80.0); Platelet Count 256 K/mm3 (142-424); Red Blood Count 4.68 M/mm3 (4.60-6.20); Red Cell Distribution Width 15.5 % (11.5-17.5); White Blood Count 6.3 K/mm3 (4.8-10.8)
--- NOTE | 2023-09-25 12:30 | PC.NURSE ---
RAD at [facility]
[2023-09-25 12:31] VITALS: BP 145/59; PULSE 57; RESP 15; O2SAT 95
[2023-09-25 12:39] LABS: Anion Gap 12.6 mEq/L (5-15); Blood Urea Nitrogen 12 mg/dl (9-20); Calcium 8.8 mg/dl (8.4-10.2); Carbon Dioxide 25 mmol/L (22.0-30.0); Chloride 103 mmol/L (98-107); Creatinine Clearance Estimated 3 mL/min (50-200); Estimated Glomerular Filt Rate 85 ml/min (>60); GFR (African American) 102 ML/MIN (>60); Glucose 103 mg/dl (74-100); Potassium 3.6 mmoL/L (3.5-5.1); Sodium 137 mmol/L (136-145)
[2023-09-25 12:40] LABS: Coronavirus 19, PCR Not Detected (NotDetected); Influenza A, PCR Not Detected (NotDetected); Influenza B, PCR Not Detected (NotDetected)
[2023-09-25 12:45] LABS: D-Dimer 0.46 ug/mL (0.0-0.5)
[2023-09-25 12:47] LABS: NT Pro Brain Natriuretic Pep. 32.6 pg/mL (0-125)
[2023-09-25 12:54] LABS: Troponin I < 0.01 ng/ml (0.00-0.034)
[2023-09-25 13:00] VITALS: BP 139/72; PULSE 53; RESP 17; O2SAT 94
[2023-09-25 13:31] VITALS: BP 143/76; PULSE 57; O2SAT 94
--- NOTE | 2023-09-25 13:41 | HMH.EDGENADL ---
Discharge Plan Disposition Patient Disposition: Home, Self-Care Condition: Good Prescriptions Prescriptions: No Action famotidine 20 mg tablet 20 mg PO DAILY amlodipine-benazepril 10-20 mg Capsule 1 cap PO DAILY alprazolam 1 mg tablet 1 mg PO TID clopidogrel 75 mg tablet 75 mg PO DAILY tamsulosin 0.4 mg capsule 0.4 mg PO DAILY hydrochlorothiazide 25 mg tablet 25 mg PO DAILY rosuvastatin 20 mg tablet 20 mg PO DAILY Referrals Follow up/Referrals: Roberto Osborne MD [Primary Care Provider] - See instructions Frederic Barbour MD [Staff Physician] - See instructions Activity Restrictions/Add. Instructions Additional Instructions/Restrictions: You were evaluated in the emergency department today. Please follow-up closely with cardiology as well as your primary care provider for further follow-up. Return to the emergency department for new or worsening symptoms. Clinical Impressions Clinical Impression: DO (dyspnea on exertion) Instructions Patient Instructions: DI for Shortness of Breath Discharge ED Provider: Cathie Patterson General Adult HPI General Chief complaint: Shortness of Breath/Dyspnea Stated complaint: SOA Time Seen by Provider: 09/25/23 12:02 Mode of Arrival: Family Vehicle Source of Information: Patient Limitations: No Limitations Description of Symptoms (Recalled from ER Triage Doc. by RN): Pt c/o increasing SOA and dyspnea for 3 days. History of Present Illness HPI narrative: This patient is a 67-year-old male with a history of lumbar radiculopathy and CAD on aspirin and Plavix presented to the emergency department for evaluation with concern for dyspnea on exertion. He states that he gets out of breath when walking very short distances, which is unusual for him. He denies any recent fevers, chills, cough, congestion, chest pain, abdominal pain, nausea, vomiting, or other concerns. He denies experiencing anything like this in the past. He has remote smoking history but notes that he has not smoked in the last several years. Related Data Home Medications Medication Instructions Recorded Confirmed alprazolam 1 mg tablet 1 mg PO TID Anxiety 10/18/22 09/25/23 clopidogrel 75 mg tablet 75 mg PO DAILY hld 10/18/22 09/25/23 hydrochlorothiazide 25 mg tablet 25 mg PO DAILY htn 10/18/22 09/25/23 rosuvastatin 20 mg tablet 20 mg PO DAILY hld 10/18/22 09/25/23 tamsulosin 0.4 mg capsule 0.4 mg PO DAILY urinary retention 10/18/22 09/25/23 famotidine 20 mg tablet 20 mg PO DAILY 07/25/23 09/25/23 amlodipine 10 mg-benazepril 20 mg 1 cap PO DAILY 07/28/23 09/25/23 capsule Allergies Allergy/AdvReac Type Severity Reaction Status Date / Time No Known Allergies Allergy Verified 08/03/23 11:09 [facility] Disclaimer: The information contained in this section may have been updated after the patient was seen, as this information can be updated by other users. 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
--- NOTE | 2023-09-25 13:50 | PC.NURSE ---
ambulated pt in [facility], states he does feel soa, oxygen 96 on MD ROBERTH aware
--- NOTE | 2023-09-25 14:10 | CA_ITS ---
APPROVED REPORT EXAM: Comprehensive 2D, Doppler, and color-flow Echocardiogram Electrophonic Engineer: Demi Jade RVT Ht: 5 ft 8 in Wt: 235lbs BSA: 2.19 BP: 128/72 mmHg Indications: DO,,HTN,HLD,EX SMOKER 2D Dimensions LA Volume 73.00 mL LA Volume Index 33.33 mL/m2 (M/F) 16-34 M-Mode Dimensions RVDd 2.96 cm (0.9-2.6) LA Diam 3.81 cm (1.9-4.0) LVDd 5.51 cm (3.5-5.7) LVDs 3.38 cm (3.5-5.7) IVSd 1.48 cm (0.6-1.1) PWd 0.53 cm (0.6-1.1) EF (Teich) 68.40% FS 38.70% EDV (Teich) 148.00 mL TAPSE 3.23 (<1.7) ESV (Teich) 46.80 mL LV Diastology E Decel Time 150 (160-240 msec) E/A Ratio 1.0 MED A' 8.50 cm/s LAT A' 7.40 cm/s Aortic Valve MALENA Index 0.70 cm2/m2 AoV Peak Keenan. 204.0 (50-130 cm/s) AO Peak GR. 16.70 mmHg AO Mean GR. 9.20 (<5 mmHg) AO VTI 44.9 (18-25 cm) MALENA (VTI) 1.56 (2.5-4.5 cm2) Mitral Valve MV E Max Keenan. 82.0 (40-130 cm/s) MV A Velocity 83.0 (40-130 cm/s) E/A Ratio 0.99 MV PHT 44.0 ms Pulmonary Valve PV Peak Velocity 82.0 (50-150 cm/s) Tricuspid Valve TR P. Velocity 194.00 cm/s RAP Estimate 10.00 mmHg RVSP 25.00 mmHg Left Ventricle The left ventricle is normal size. The left ventricular systolic function is normal. The left ventricular ejection fraction is within the normal range. There is increased LV wall thickness. There is normal LV segmental wall motion. Diastolic function is indeterminate. LVEF is 50-55%. Right Ventricle The right ventricle is moderately dilated. The right ventricular systolic function is normal. Atria The left atrium is mildly dilated. The right atrium is mildly dilated. Aortic Valve The aortic valve is mildly thickened. There is no aortic valvular stenosis. Trace aortic regurgitation. Mitral Valve The mitral valve leaflets are mildly thickened. No evidence of mitral valve stenosis. Mild mitral regurgitation. Tricuspid Valve The tricuspid valve leaflets are thin and pliable. Mild tricuspid regurgitation. RVSP is normal. Pulmonic Valve The pulmonary valve is normal in structure. Trace pulmonic regurgitation. Great Vessels The aortic root is normal in size. The ascending aorta is normal in size. IVC is normal in size and collapses >50% with inspiration. Pericardium There is no pericardial effusion. Other Information Study Quality: Fair Conclusion Normal biventricular systolic function. Moderately dilated RV. Mild biatrial dilatation. Mild MR. Mild TR. Electronically signed by : Anne Avalos MD 09/25/2023 23:51:54
[2023-09-25 15:18] VITALS: BP 133/77; PULSE 85; RESP 18; TEMP 36.8; O2SAT 97
== END 2023-09-25 15:20 | disposition home or self-care (01) ==
PROVIDERS: Emergency Provider Emergency Medicine; PCP Internal Medicine
DX: R06.02 Shortness of breath (principal); I25.10 Atherosclerotic heart disease of native coronary artery without angina pectoris; M54.16 Radiculopathy, lumbar region; Z79.02 Long term (current) use of antithrombotics/antiplatelets; Z79.82 Long term (current) use of aspirin; Z87.891 Personal history of nicotine dependence; R00.1 Bradycardia, unspecified; E78.5 Hyperlipidemia, unspecified
CPT/HCPCS: 71045; 80048; 83880; 84484; 85025; 85378; 87636; 93005; 93306; 99285

== ENCOUNTER 2023-10-20 08:41 | Day surgery (SDC) | payer MEDICARE, SELFPAY ==
[2023-10-20 08:49] VITALS: BMI 36.6
[2023-10-20 08:59] VITALS: BP 170/93; PULSE 59; RESP 19; TEMP 36.4; O2SAT 97
[2023-10-20 09:11] LABS: Basophils # 0.1 K/mm3 (0-0.2); Basophils % 1.2 % (0.1-2.0); Eosinophils # 0.1 K/mm3 (0.0-0.4); Eosinophils % 2.5 % (0.1-12.0); Hematocrit 39.1 % (42.0-52.0); Hemoglobin 12.8 g/dL (14.1-18.0); Lymphocytes # 1.7 K/mm3 (0.7-4.5); Lymphocytes % 33.9 % (10-50); Mean Corpuscular HGB Conc 32.6 g/dL (31.8-35.4); Mean Corpuscular Hemoglobin 24.3 pg (27.0-31.2); Mean Corpuscular Volume 74.3 fl (80-94); Mean Platelet Volume 8.4 fl (7.4-10.4); Monocytes # 0.4 K/mm3 (0.1-1.0); Monocytes % 8.7 % (1.7-9.3); Neutrophils # 2.7 K/mm3 (1.8-7.8); Neutrophils % 53.7 % (37.0-80.0); Platelet Count 250 K/mm3 (142-424); Red Blood Count 5.25 M/mm3 (4.60-6.20); Red Cell Distribution Width 17.1 % (11.5-17.5); White Blood Count 4.9 K/mm3 (4.8-10.8)
[2023-10-20 09:16] LABS: Chloride 102 mmol/L (98-107); Sodium 140 mmol/L (136-145)
[2023-10-20 09:19] LABS: Blood Urea Nitrogen 16 mg/dl (9-20); Calcium 8.9 mg/dl (8.4-10.2); Carbon Dioxide 28 mmol/L (22.0-30.0); Creatinine Clearance Estimated 114 mL/min (50-200); Estimated Glomerular Filt Rate 85 ml/min (>60); GFR (African American) 102 ML/MIN (>60); Glucose 118 mg/dl (74-100)
[2023-10-20] MEDS: diphenhydrAMINE 50MG/ML VIAL 50 MG IV (09:55)
--- NOTE | 2023-10-20 09:57 | SUR.PREOP ---
Case cancelled d/t insurance approval, will be rescheduled to later date. notified.
== END 2023-10-20 10:04 | disposition home or self-care (01) ==
LOC: CATHLAB 08:42
PROVIDERS: PCP Internal Medicine; Visit Provider Internal Medicine
DX: Z53.8 Procedure and treatment not carried out for other reasons (principal)
CPT/HCPCS: 80048; 85025

== ENCOUNTER 2023-10-30 08:33 | Day surgery (SDC) | payer MEDICARE, SELFPAY ==
[2023-10-30] VITALS (12 sets, daily range): BP systolic 116–196; BP diastolic 58–102; PULSE 51–66; RESP 17–20; TEMP 36.6–37; O2SAT 92–98; BMI 36.6
--- NOTE | 2023-10-30 | IR_ITS ---
APPROVED REPORT Patient Location: Outpatient [place]: THOM Govea RT (R) PROCEDURES Right heart catheterization Left heart catheterization Left ventriculogram Selective coronary angiogram INDICATION Pulmonary hypertension, Angina pectoris Informed consent was obtained prior to the procedure. COMPLICATIONS None Estimated Blood Loss: Less than 10 mls TECHNIQUE One percent lidocaine was used to anesthetize the right anterior aspect of the right wrist. The right radial artery was accessed via the Seldinger technique and a 6 Kosovan hydrophilic sheath was placed in the right radial artery. Following this one percent lidocaine was used to anesthetize the right anterior aspect of the right neck. The right internal jugular vein was accessed via the Seldinger technique and a 7 Kosovan sheath was placed in the right internal jugular vein. Following this an arterial cocktail was administered using 5000U heparin, 2.5 mg verapamil, 1mg Lidocaine and 800mcg nitroglycerin into the right radial sheath. A papa catheter was used to perform left heart catheterization left ventriculogram and selective coronary angiography while a Hilliard-Vicky catheter was used to perform right heart catheterization. Saturations were obtained in the pulmonary artery and right atrium. At the end of the procedure the arterial sheath was removed good hemostasis was achieved using Traclet band. Patient was transferred to the postop holding area in stable condition for venous sheath removal. ANGIOGRAPHIC RESULTS The left main artery Normal The left anterior descending artery Has a proximal concentric 30 to 40% stenosis with remaining vessel being widely patent The circumflex artery Gives rise to a moderate-sized ramus intermedius which has a proximal smooth 30% stenosis. The first obtuse marginal artery is moderate in size and has a 30 to 40% stenosis The right coronary artery Dominant and normal The SEPULVEDA ventriculogram reveals Normal 65% The left ventricular end-diastolic pressure 15 mmHg Right atrial pressure 12 mmHg Right ventricular pressure 25/12 mmHg Pulmonary artery pressure 22/12 mmHg Pulmonary artery occlusion pressure 12 mmHg IMPRESSION Mild to moderate proximal LAD disease as described above with additional moderate disease in the ramus intermedius and first obtuse marginal artery Normal ejection fraction Mild pulmonary hypertension Hemoglobin 12.8 Right atrial saturation 77% Pulmonary artery saturation 70% Aortic saturation 97% Cardiac output 8.5 L/min via Ijeoma Cardiac index 3.9 via [place]jeoma PLAN 1. Aggressive medical management for coronary disease with a goal LDL less than 55 to be achieved with high intensity statin 2. Recommend sleep study Electronically signed by : Frederic Barbour MD 10/30/2023 12:03:16
[2023-10-30] MEDS: diphenhydrAMINE 50MG/ML VIAL 50 MG IV (10:42)
[2023-10-30] MEDS: LIDOCAINE 1% 10ML MDV 20 ML IJ (10:42)
[2023-10-30] MEDS: NITROGLYCERIN 800MCG/8ML SYR (CATH LAB) 800 MCG IA (10:42)
[2023-10-30] MEDS: VERAPAMIL 2.5MG/ML 2ML VIAL 2.5 MG IV (10:42)
[2023-10-30] MEDS: HEPARIN 1,000 UNITS/500ML NS (CATH LAB) 3000 UNIT IV (10:42)
[2023-10-30] MEDS: 0.9 % SODIUM CHLORIDE 500 ML 25 ML IV (10:42)
[2023-10-30] MEDS: MIDAZOLAM HCL 1MG/1ML 5ML VIAL 1 MG IV (12:02)
[2023-10-30] MEDS: FENTANYL 100MCG/2ML VIAL 50 MCG IV (12:02)
[2023-10-30] MEDS: HEPARIN 1,000 UNITS/ML 10ML VIAL (CATH LAB) 10000 UNIT IV (12:03)
[2023-10-30 12:51] LABS: CATHL Arterial O2 SAT 78.4 % (90-100); CATHL Venous O2 SAT 77.4 % (75-80)
[2023-10-30] MEDS: IOPAMIDOL-370 (76%);100ML BOTTLE 50 ML IV (13:10)
== END 2023-10-30 15:04 | disposition home or self-care (01) ==
PROVIDERS: PCP Internal Medicine; Visit Provider Internal Medicine
DX: I27.21 Secondary pulmonary arterial hypertension (principal); R06.00 Dyspnea, unspecified; R94.31 Abnormal electrocardiogram [ECG] [EKG]; Z79.899 Other long term (current) drug therapy
CPT/HCPCS: 82810; 93460; 99152; 99153; C1725; C1769; C1894; J1644; Q9967

== ENCOUNTER 2024-01-19 12:27 | Outpatient (CLI) | payer MEDICARE, SELFPAY ==
[2024-01-19 14:42] LABS: Basophils # 0.1 K/mm3 (0-0.2); Basophils % 1.2 % (0.1-2.0); Eosinophils # 0.1 K/mm3 (0.0-0.4); Eosinophils % 1.4 % (0.1-12.0); Hematocrit 41.8 % (42.0-52.0); Hemoglobin 12.9 g/dL (14.1-18.0); Lymphocytes # 1.8 K/mm3 (0.7-4.5); Lymphocytes % 26.3 % (10-50); Mean Corpuscular HGB Conc 30.8 g/dL (31.8-35.4); Mean Corpuscular Hemoglobin 24.1 pg (27.0-31.2); Mean Corpuscular Volume 78.1 fl (80-94); Mean Platelet Volume 9.4 fl (7.4-10.4); Monocytes # 0.5 K/mm3 (0.1-1.0); Monocytes % 8.1 % (1.7-9.3); Neutrophils # 4.2 K/mm3 (1.8-7.8); Neutrophils % 63.1 % (37.0-80.0); Platelet Count 213 K/mm3 (142-424); Red Blood Count 5.35 M/mm3 (4.60-6.20); Red Cell Distribution Width 18.8 % (11.5-17.5); White Blood Count 6.7 K/mm3 (4.8-10.8)
[2024-01-19 15:54] LABS: Alanine Aminotransferase 63 U/L (12-78); Albumin Level 4.5 g/dl (3.5-5.0); Albumin/Globulin Ratio 1.5 (1.1-1.8); Alkaline Phosphatase 75 U/L (38-126); Anion Gap 11.9 mEq/L (5-15); Aspartate Amino Transferase 73 U/L (17-59); Bilirubin,Total 0.5 mg/dl (0.2-1.3); Blood Urea Nitrogen 15 mg/dl (9-20); Calcium 9.1 mg/dl (8.4-10.2); Carbon Dioxide 28 mmol/L (22.0-30.0); Chloride 104 mmol/L (98-107); Chol/HDL Ratio 5.1 (1-3.5); Cholesterol 183 mg/dl (140-200); Estimated Glomerular Filt Rate 97 ml/min (>60); GFR (African American) 117 ML/MIN (>60); Glucose 94 mg/dl (74-100); HDL Cholesterol 36 mg/dl (40-60); Potassium 3.9 mmoL/L (3.5-5.1); Sodium 140 mmol/L (136-145); Total Protein,Serum 7.5 g/dl (6.3-8.2); Triglycerides 144 mg/dl (30-150); VLDL Cholesterol 29 mg/dL (0-40)
[2024-01-19 16:08] LABS: Direct LDL Cholesterol 107.65 mg/dL (100-129)
[2024-01-19 16:27] LABS: Prostate Specific Ag Screen 0.5 ng/ml (0.0-4.0)
[2024-01-19 17:19] LABS: Iron 54 ug/dL (49-181)
[2024-01-19 17:28] LABS: Total Iron Binding Capacity 458 ug/dL (261-462)
== END 2024-01-19 23:59 | disposition home or self-care (01) ==
LOC: LAB.DROPOF 12:28
PROVIDERS: PCP Internal Medicine; Visit Provider Internal Medicine
DX: I11.9 Hypertensive heart disease without heart failure (principal); D64.9 Anemia, unspecified; Z12.5 Encounter for screening for malignant neoplasm of prostate; E78.5 Hyperlipidemia, unspecified; I25.10 Atherosclerotic heart disease of native coronary artery without angina pectoris; F41.9 Anxiety disorder, unspecified; M47.27 Other spondylosis with radiculopathy, lumbosacral region; M15.0 Primary generalized (osteo)arthritis; Z87.891 Personal history of nicotine dependence
CPT/HCPCS: 80053; 80061; 83540; 83550; 85025; G0103

== ENCOUNTER 2024-10-29 13:28 | Outpatient (CLI) | payer MEDICARE, SELFPAY ==
[2024-10-29 12:26] LABS: Basophils # 0.1 K/mm3 (0-0.2); Basophils % 1.5 % (0.1-2.0); Eosinophils # 0.1 K/mm3 (0.0-0.4); Eosinophils % 2.4 % (0.1-12.0); Hematocrit 45.3 % (42.0-52.0); Hemoglobin 14.8 g/dL (14.1-18.0); Lymphocytes # 1.9 K/mm3 (0.7-4.5); Lymphocytes % 31.9 % (10-50); Mean Corpuscular HGB Conc 32.7 g/dL (31.8-35.4); Mean Corpuscular Volume 85.6 fl (80-94); Mean Platelet Volume 10.5 fl (7.4-10.4); Monocytes # 0.7 K/mm3 (0.1-1.0); Monocytes % 11.7 % (1.7-9.3); Neutrophils % 52.2 % (37.0-80.0); Platelet Count 161 K/mm3 (142-424); Red Blood Count 5.29 M/mm3 (4.60-6.20); Red Cell Distribution Width 13.7 % (11.5-17.5); White Blood Count 5.8 K/mm3 (4.8-10.8)
[2024-10-29 12:50] LABS: Albumin Level 4.9 g/dl (3.5-5.0); Chloride 102 mmol/L (98-107); Potassium 3.9 mmoL/L (3.5-5.1); Sodium 135 mmol/L (136-145)
[2024-10-29 12:52] LABS: Blood Urea Nitrogen 16 mg/dl (9-20); Estimated Glomerular Filt Rate 97 ml/min (>60); GFR (African American) 117 ML/MIN (>60)
[2024-10-29 12:53] LABS: Alanine Aminotransferase 90 U/L (12-78); Albumin/Globulin Ratio 1.7 (1.1-1.8); Alkaline Phosphatase 88 U/L (38-126); Anion Gap 11.9 mEq/L (5-15); Aspartate Amino Transferase 105 U/L (17-59); Bilirubin,Total 0.8 mg/dl (0.2-1.3); Calcium 9.5 mg/dl (8.4-10.2); Carbon Dioxide 25 mmol/L (22.0-30.0); Cholesterol 171 mg/dl (140-200); Globulin 2.9 g/dL (1.3-3.2); Glucose 98 mg/dl (74-100); HDL Cholesterol 34 mg/dl (40-60); Total Protein,Serum 7.8 g/dl (6.3-8.2); Triglycerides 188 mg/dl (30-150); VLDL Cholesterol 38 mg/dL (0-40)
[2024-10-29 13:04] LABS: Direct LDL Cholesterol 100.09 mg/dL (100-129)
== END 2024-10-29 23:59 | disposition home or self-care (01) ==
LOC: LAB.DROPOF 13:29
PROVIDERS: PCP Internal Medicine; Visit Provider Internal Medicine
DX: E78.5 Hyperlipidemia, unspecified (principal); I10 Essential (primary) hypertension; I25.10 Atherosclerotic heart disease of native coronary artery without angina pectoris; Z87.891 Personal history of nicotine dependence
CPT/HCPCS: 80053; 80061; 85025

== ENCOUNTER 2024-11-06 07:08 | Outpatient (CLI) | payer MEDICARE, SELFPAY ==
--- NOTE | 2024-11-06 07:09 | US_ITS ---
FINAL REPORT TECHNIQUE: Ultrasound images of the abdomen were obtained. CLINICAL HISTORY: Epigastric pain, elevated liver enzymes COMPARISON: None FINDINGS: The pancreas is unremarkable. There is fatty infiltration of the liver. There is a small echogenic focus in the gallbladder consistent with a polyp. The gallbladder wall measures 3 mm. The common duct is normal measuring 4 mm. The right kidney measures 12.8 cm in length and is normal in echogenicity without hydronephrosis. There is a 1.2 cm cyst in the right kidney. The left kidney measures 11.4 cm in length and is normal in echogenicity without hydronephrosis. The spleen is unremarkable. The aorta is normal in caliber. The vena cava is unremarkable. IMPRESSION: Gallbladder polyp. Right kidney cyst. Reviewed, Interpreted and Dictated by Shar Steward MD Transcribed by Brittani Odonnell Authenticated and [facility]
== END 2024-11-06 23:59 | disposition home or self-care (01) ==
LOC: RAD 07:09
PROVIDERS: PCP Internal Medicine; Visit Provider Internal Medicine
DX: R10.13 Epigastric pain (principal); R74.8 Abnormal levels of other serum enzymes
CPT/HCPCS: 76700

== ENCOUNTER 2025-05-21 09:53 | Outpatient (CLI) | payer MEDICARE, SELFPAY ==
[2025-05-21 13:45] LABS: Hematocrit 46.5 % (42.0-52.0); Hemoglobin 14.8 g/dL (14.1-18.0); Immature Granulocytes % 0.3 %; Mean Corpuscular HGB Conc 31.8 g/dL (31.8-35.4); Mean Corpuscular Hemoglobin 28.2 pg (27.0-31.2); Mean Corpuscular Volume 88.6 fl (80-94); Nucleated Red Blood Cells % 0 %; Platelet Count 183 K/mm3 (142-424); Red Blood Count 5.25 M/mm3 (4.60-6.20); Red Cell Distribution Width-SD 44.3 fL; White Blood Count 5.8 K/mm3 (4.8-10.8)
[2025-05-21 15:02] LABS: Alanine Aminotransferase 96 U/L (12-78); Albumin Level 4.8 g/dl (3.5-5.0); Albumin/Globulin Ratio 1.5 (1.1-1.8); Alkaline Phosphatase 105 U/L (38-126); Amylase 57 U/L (30-110); Anion Gap 13.0 mEq/L (5-15); Aspartate Amino Transferase 123 U/L (17-59); Bilirubin,Total 0.8 mg/dl (0.2-1.3); Blood Urea Nitrogen 13 mg/dl (9-20); Calcium 9.2 mg/dl (8.4-10.2); Carbon Dioxide 28 mmol/L (22.0-30.0); Chloride 103 mmol/L (98-107); Cholesterol 180 mg/dl (140-200); Creatinine,Serum 0.90 mg/dl (0.66-1.25); Estimated Glomerular Filt Rate 84 ml/min (>60); GFR (African American) 102 ML/MIN (>60); Globulin 3.1 g/dL (1.3-3.2); Glucose 94 mg/dl (74-100); HDL Cholesterol 37 mg/dl (40-60); Potassium 4.0 mmoL/L (3.5-5.1); Sodium 140 mmol/L (136-145); Total Protein,Serum 7.9 g/dl (6.3-8.2); Triglycerides 197 mg/dl (30-150)
[2025-05-21 15:46] LABS: Hepatitis C Ab Qual. W/ RFX NEGATIVE (Negative)
[2025-05-22 08:14] LABS: Hepatitis B Core Antibody, IgM Negative (Negative); Hepatitis B Surface Antigen Negative (Negative)
--- OUTSIDE RECORDS SUMMARY | 2025-05-23 09:55 | XMS_ITS | Clinical Summary ---
Author Organization [facility] [place] [id number] Care Team Providers Care Therapeutic Recreation Specialist Name Role Phone Unavailable Primary Care Provider Unavailabl e Social History Tobacco Use Types Packs/Day Years Used Date Smoking Tobacco: Never Assessed Sex and Gender Information Value Date Recorded Sex Assigned at Not on file Legal Sex Male 10:56 PM EDT Gender Identity Not on file Sexual Orientation Not on file Plan of Treatment Health Maintenance Due Date Last Done Comments Annual Wellness Exam 1960 Hepatitis C Screening 1975 DTaP/TDaP/Td (1 - Tdap) 1976 Cologuard 2002 Colon Cancer Screening 2002 Colonoscopy 2002 FIT 2002 Sigmoidoscopy 2002 Virtual Colonography 2002 Pneumococcal Vaccine 50+ (1 of 1 - PCV) 2007 Zoster (1 of 2) 2007 COVID-19 Vaccine (2023-2 5 season) 2024 Influenza Vaccine (#1) 2025 Hepatitis B Vaccine Aged Out No longe r eligible based on patient's age to complete this topic Meningococcal B Vaccine Aged Out No l onger eligible based on patient's age to complete this topic
--- OUTSIDE RECORDS SUMMARY | 2025-05-23 09:55 | XMS_ITS | Clinical Summary ---
Author Organization [facility] yste Address [address] [place] [id number] Care Team Providers Care Vp Design Name Role Phone Unavailable Primary Care Provider Unavailabl e Social History Tobacco Use Types Packs/Day Years Used Date Smoking Tobacco: Never Assessed Abuse Screen Answer Date Recorded Unsafe at Home or Work/School Not on file Feels Threatened by Someone? Not on file 06/2023 Does Anyone Keep You from Co ntacting Others or Doint Things Outside the Home? Not on file 07/17/2023 Physical Sign of Abuse Present Not on file 1 Housing Stability Answer Date Recorded Current Living Arrangements Not on file 06/2023 Potentially Unsafe Housing Conditions Not on gulshan e 07/17/2023 Family and Community Support Answer Jonathon e Recorded Help with Day-to-Day Activities Not on file 07/17/2023 Lonely or Isolated Not on file 07/17/2023 Employment Answer Date Recorded Do you want help finding or keeping work or a merlin b? Not on file 07/17/2023 Disabilities Answer Date Recorded Concentrating, Remembering, or Making Decisions Difficulty Not on file 07/17/2023 Doing Errands Independently Difficulty Not on fi le 07/17/2023 Education Answer Date Recorded Help with school or training? Not on file Preferred Language Not on file 07/17/2023 Sex and Gender Information Value Date Recorded Sex Assigned at Not on file Legal Sex Male 1:02 PM EDT Gender Identity Not on file Sexual Orientation Not on file Plan of Treatment Health Maintenance Due Date Last Done Comments ANNUAL PHYSICAL 1955 HEPATITIS C SCREENING 1957 TDAP/TD VACCINES (1 - Tdap) 1976 COLOGUARD 2002 COLON CANCER SCREENING 5 YEAR SIGMOIDOSCOPY 2002 COLONOSCOPY 2002 [address] CANCER SCREENING 2002 CT COLONOGRAPHY 2002 FECAL OCCULT BLOOD TEST 2002 FIT Testing (1 year) 2002 Pneumococcal Vaccine 50+ (1 of 1 - PCV) 2007 ZOSTER VACCINE (1 of 2) 2007 AAA SCREEN ONCE 2022 COVID-19 Vaccine ( - season) 2024 INFLUENZA VACCINE 07/09/2025
== END 2025-05-21 23:59 | disposition home or self-care (01) ==
LOC: LAB.DROPOF 05-23 09:53
PROVIDERS: PCP Internal Medicine; Visit Provider Internal Medicine
DX: E78.5 Hyperlipidemia, unspecified (principal); R74.8 Abnormal levels of other serum enzymes; R10.13 Epigastric pain; I10 Essential (primary) hypertension; Z12.5 Encounter for screening for malignant neoplasm of prostate
CPT/HCPCS: 80053; 80061; 82150; 85025; 86705; 86803; 87340; G0103

== ENCOUNTER 2025-05-26 07:13 | Outpatient (CLI) | payer MEDICARE, SELFPAY ==
--- OUTSIDE RECORDS SUMMARY | 2025-05-26 07:15 | XMS_ITS | Clinical Summary ---
Author Organization [facility] yste Address [address] [place] [id number] Care Team Providers Care Boat Outfitter Name Role Phone Unavailable Primary Care Provider [...]
--- OUTSIDE RECORDS SUMMARY | 2025-05-26 07:15 | XMS_ITS | Clinical Summary ---
Author Organization [facility] [place] [address] Care Team Providers Care Digital Forensic Analyst Name Role Phone Unavailable Primary Care Provider [...]
--- NOTE | 2025-05-26 07:30 | US_ITS ---
FINAL REPORT TECHNIQUE: Ultrasound images of the abdomen were obtained. CLINICAL HISTORY: Epigastric and right upper quadrant pain COMPARISON: None FINDINGS: The pancreas is obscured by bowel gas. The liver is unremarkable. The gallbladder demonstrates a small amount of sludge in the gallbladder. The common duct is normal measuring 4 mm in diameter. The right kidney measures 11.8 cm in length and is without hydronephrosis. There is a hypoechoic 1 x 1.3 cm right renal cyst present. There are small echogenic foci in the right kidney that may represent tiny renal stones. The left kidney measures 11.5 cm in length and is without hydronephrosis. There is a 1.3 x 1.4 cm left renal cyst. There is an adjacent echogenic focus measuring 1.2 cm in size, that may represent a renal stone. The spleen is unremarkable. The aorta is normal in caliber. The vena cava is unremarkable. IMPRESSION: Sludge is present in the gallbladder. There are small echogenic foci in each kidney, and CT of the abdomen and pelvis may help to evaluate the described calcifications. Reviewed, Interpreted and Dictated by Shar Steward MD Transcribed by Karol Gerard Authenticated and [facility]
== END 2025-05-26 23:59 | disposition home or self-care (01) ==
PROVIDERS: PCP Internal Medicine; Visit Provider Internal Medicine
DX: R93.422 Abnormal radiologic findings on diagnostic imaging of left kidney (principal); R93.421 Abnormal radiologic findings on diagnostic imaging of right kidney; R93.2 Abnormal findings on diagnostic imaging of liver and biliary tract; R10.13 Epigastric pain; R10.11 Right upper quadrant pain
CPT/HCPCS: 76700

== ENCOUNTER 2025-09-19 06:45 | Outpatient (CLI) | payer OTHER, SELFPAY ==
--- NOTE | 2025-09-19 | CT_ITS ---
FINAL REPORT TECHNIQUE: Axial CT images were performed through the head. Coronal and sagittal reformatted images were submitted. This study was performed with techniques to keep radiation doses as low as reasonably achievable (ALARA). Individualized dose reduction techniques using automated exposure control or adjustment of mA and/or kV according to the patient's size were employed. CLINICAL HISTORY: SUBDURIAL HEMATOMA COMPARISON: 12/13/2019 FINDINGS: CT HEAD: Mild global atrophy is present. There is no evidence of hemorrhage. There is no mass or edema identified. There is no abnormal extra-axial fluid seen. Mucoperiosteal thickening in the left maxillary sinus. IMPRESSION: Mild global atrophy, with no acute intracranial process. Reviewed, Interpreted and Dictated by Shar Steward MD Transcribed by Karol Gerard Authenticated and [facility]
--- OUTSIDE RECORDS SUMMARY | 2025-09-19 06:49 | XMS_ITS | Clinical Summary ---
Author Organization [facility] yste Address [address] [place] [id number] Care Team Providers Care Social Insurance Analyst Name Role Phone Unavailable Primary Care [...] of 2) 2007 AAA SCREEN ONCE 2022 INFLUENZA VACCINE 05/09/2025 COVID-19 Vaccine ( - season) 2025
--- OUTSIDE RECORDS SUMMARY | 2025-09-19 06:49 | XMS_ITS | Clinical Summary ---
Author Organization [facility] Address [address] [place] [address] Phone Care Team Providers Care Admissions Gate Attendant Name Role Phone Roberto Osborne MD Primary Care Provider [phone] Allergies Active Allergy Reactions Criticality Noted Date Comments Girma Inhibitors Anaphylaxis High 06/20/2025 angioedema Medications ALPRAZolam (XANAX) 1 mg Oral Tablet Take 1 mg by mouth 3 times daily as needed for Other (anxiety). Active amLODIPine-irene zepril (LOTREL) 10-40 mg Oral Capsule Take 1 Capsule by mouth daily. Active pantoprazole (PROTONIX) 40 mg Oral Tablet, Delayed Release (E.C.) Take 40 mg by mouth daily. Active tamsulosin (FLOMAX) 0.4 mg Oral Capsule Take 0.4 mg by mouth daily. Active rosuvastatin (CRESTOR) 40 mg Oral Tablet Take 40 mg by mouth daily. Active acetaminophen 325 mg Oral Tab Take 2 Tablets by mouth every 6 hours as needed for Pain or Headaches. 06/23/2025 Active aspirin 81 mg Oral Tablet, Chewable Take 1 Tablet by mouth daily. 07/16/2025 Active Active Problems Problem Noted Date Diagnosed Date Carotid artery plaque, bilateral 06/22/2025 Overview (06/22/2025): CUS 06/22/2025 There is a right proximal internal carotid artery mildly obstructive lesion noted, with an estimated 1-39% stenosis. * There is a left proximal internal carotid artery mildly obstructive lesion noted, with an estimated 1-39% stenosis. * There is a right proximal external carotid artery lesion with >50% stenosis. hx of PAD/CAD = he has never had an event, surgery/procedure. Was just started on bASA and Plavix, but has non-critical ds. He does NOTneed PLAVIX at d/c; just a bASA. Coronary artery disease invo lving [place] coronary artery of [place] heart without angina pectoris 06/22/2025 Overview (06/22/2025): 06/2025 per patient = non-critical, non-obstr ds. No stents/procedures. Reports not available in EPIC. hx of PAD/CAD = he has never had an event, surgery/procedure. Was just started on bASA and Plavix, but has non-critical ds. He does NOTneed PLAVIX at d/c; just a bASA. Angioedema of tongue 06/20/2025 Lumbar radiculopathy 06/20/2025 Essential hypertension 06/20/2025 Fall, initial encounter 06/16/2025 Subdural hematoma 06/16/2025 Encounters Date Type Department Care Team Description 07/10/2025 1:37 PM EDT - 07/10/2025 11:59 PM EDT Hospital Encounter [facility] [address] [place] [address] Carla Antoine APRN Subdural hematoma (HCC) Discharge Disposition: Home or Self Care 06/16/2025 10:43 AM EDT - 06/23/2025 11:21 AM EDT Hospital Encounter [facility]G [address] [place] [address] Steve Nunes MD Wyenandt, Robert L Jr., MD Discharge Disposition: Home or Self Care from Last 3 Months Immunizations Immunization Administration Dates Next Due Tdap 06/16/2025 Medical History Medical History Date Comments CAD (coronary artery disease) Social History Tobacco Use Types Packs/Day Years Used Date Smoking Tobacco: Never Smokeless Tobacco: Never Tobacco Cessation:Counseling Given: Not Answered [facility] Utilities Answer Date Recorded In the past 12 months has [employer], gas, oil, or water [employer] threatened to shut off services in your home? No 06/17/2025 Overall Financial Resource Strain (CARDIA) Answe r Date Recorded How hard is it for you to pa y for the very basics like food, housing, medical care, and heating? Not hard at all 06/17/2025 PHQ-2 Answer Date Recorded PHQ-2 Total Score 0 06/17/2025 [facility] - Occupational Stress Questionnaire Answer Date Recorded Do you feel stress - tense, restless, nervous, or anxious, or unable to sleep at night because your mind is troubled all the time - these days? Not at all 06/17/2025 Exercise Vital Sign Answer Date Recorde d On average, how many days pe r week do you engage in moderate to strenuous exercise (like a brisk walk)? 0 days 06/17/2025 On average, how many minutes do you engage in exercise at this level? 0 min 06/17/2025 Hunger Vital Sign Answer Date Recorded Within the past 12 months, y ou worried that your food would run out before you got the money to buy more. Never true 06/17/20 25 Within the past 12 months, t he food you bought just didn't last and you didn't have money to get more. Never true 06/17/2025 [facility] IP Transportation Answer D ate Recorded In the past 12 months, has l ack of reliable transportation kept you from medical appointments, meetings, work or from getting things needed for daily living? No 06/17/2025 Sex and Gender Information Value Date Recorded Sex Assigned at Not on file Legal Sex Male 10:56 PM EDT Gender Identity Not on file Sexual Orientation Not on file Last Filed Vital Signs Vital Sign Reading Time Taken Comments Blood Pressure 137/65 06/23/2025 9:02 AM EDT Pulse 77 06/23/2025 9:02 AM EDT Temperature 36.8 C (98.2 F) 06/23/2025 9:02 AM EDT Respiratory Rate 15 06/23/2025 9:02 AM EDT Oxygen Saturation 97% 06/23/2025 9:02 AM EDT Inhaled Oxygen Concentration - - Weight 107 kg (235 lb 14.3 oz) 06/22/2025 8:28 A M EDT Height 172.7 cm (5' 8 ) 06/22/2025 8:28 AM EDT Body Mass Index 35.87 06/22/2025 8:28 AM EDT Plan of Treatment Health Maintenance Due Date Last Done Comments Annual Wellness Exam 1960 Hepatitis C Screening 1975 Cologuard 2002 Colon Cancer Screening 2002 Colonoscopy 2002 FIT 2002 Sigmoidoscopy 2002 Virtual Colonography 2002 Pneumococcal Vaccine 50+ (1 of 1 - PCV) 2007 Zoster (1 of 2) 2007 COVID-19 Vaccine (1 - 2024-2 6 season) 2025 Influenza Vaccine (#1) 2025 DTaP/TDaP/Td (2 - Td or Tdap) 06/16/2035 06/16/2025 Hepatitis B Vaccine Aged Out No longe r eligible based on patient's age to complete this topic Meningococcal B Vaccine Aged Out No l onger eligible based on patient's age to complete this topic Procedures Procedure Name Priority Date/Time Associated Diagnosis Comments CT HEAD WO CONTRAST Routine 07/10/2025 1 :51 PM EDT Subdural hematoma (HCC) CT HEAD WO CONTRAST WENDI 06/23/2025 6 :14 AM EDT VA US CAROTID DUPLEX BILATERAL Routine 06/22/2025 10:11 AM EDT ECG AND WAVEFORMS - TELEMETRY Routine 06/21/2025 6:55 AM EDT BASIC METABOLIC PANEL Routine 06/21/2025 6:34 AM EDT ECG AND WAVEFORMS - TELEMETRY Routine 06/20/2025 7:06 PM EDT ECG AND WAVEFORMS - TELEMETRY Routine 06/20/2025 7:29 AM EDT from Last 3 Months Results * CT HEAD WO CONTRAST (07/10/2025 1:51 PM EDT) Only the most recent of2 resultswithin the time period is included. Anatomical Region Laterality Modality Head Computed Tomogra phy 07/10/2025 1:51 PM EDT Impressions 07/10/2025 2:45 PM EDT Significant interval improvement of previously seen subdural hematoma with small amount of residual blood seen overlying the posterior aspect of the falx cerebri and overlying the right frontal convexity with decreased attenuation with no significant mass effect seen on the current exam. - Note: Radiology results need to be interpreted within a comprehensive clinical context. If you have questions about the radiology report, please contact the office of the ordering clinician. Narrative 07/10/2025 2:[address] HEAD WO CONTRAST 07/10/2025 1:51 PM CLINICAL HISTORY: S06.5XAA-Traumatic subdural hemorrhage with loss of consciousness status unknown, initial encounter (HCC)-ICD-10-CM. COMPARISON: 06/23/2025 PROCEDURE COMMENTS: Routine noncontrast head CT with multiplanar reconstructions. Dose 1 : CT DLP Total : 1095 mGycm DLP Spiral Max : 1095 mGycm Maximum CTDI Vol : 56.2 mGy FINDINGS: The ventricles are normal in size and configuration with no midline shift or mass effect. Small amount of residual subdural hemorrhage is seen along the posterior aspect of the falx cerebri. There is also low-attenuation subdural collection overlying the right frontal convexity consistent with aging subdural hemorrhage. This is significantly decreased from prior study with no definite superimposed acute hemorrhage identified. There are no definite signs to suggest acute infarction. However, if there is concern of early infarction or other subtle intracranial abnormality, MRI correlation should be considered. Visualized portions of the paranasal sinuses appear clear. Procedure Note Mio Colmenares MD - 07/10/2025 CT HEAD WO CONTRAST 07/10/2025 1:51 PM CLINICAL HISTORY: S06.5XAA-Traumatic subdural hemorrhage with loss of consciousness status unknown, initial encounter (HCC)-ICD-10-CM. COMPARISON: 06/23/2025 PROCEDURE COMMENTS: Routine noncontrast head CT with multiplanar reconstructions. Dose 1 : CT DLP Total : 1095 mGycm DLP Spiral Max : 1095 mGycm Maximum CTDI Vol : 56.2 mGy FINDINGS: The ventricles are normal in size and configuration with no midline shiftor mass effect. Small amount of residual subdural hemorrhage is seen along the posterioraspect of the falx cerebri. There is also low-attenuation subdural collectionoverlying the right frontal convexity consistent with aging subdural hemorrhage.This is significantly decreased from prior study with no definite superimposedacute hemorrhage identified. There are no definite signs to suggest acute infarction. However, if thereis concern of early infarction or other subtle intracranial abnormality,MRI correlation should be considered. Visualized portions of the paranasal sinuses appear clear. IMPRESSION: Significant interval improvement of previously seen subdural hematoma withsmall amount of residual blood seen overlying the posterior aspect of the falxcerebri and overlying the right frontal convexity with decreased attenuation withno significant mass effect seen on the current exam. - Note: Radiology results need to be interpreted within a comprehensiveclinical context. If you have questions about the radiology report, please contactthe office of the ordering clinician. Carla Antoine APRN [facility] ORDERABLES Final Result * [facility] CAROTID DUPLEX BILATERAL (06/22/2025 10:11 AM EDT) Anatomical Region Laterality Modality Vascular, Head, Neck Vascular Im aging 06/22/2025 9:45 AM EDT Impressions 06/22/2025 12:48 PM EDT Conclusions * There is a right proximal internal carotid artery mildly obstructive lesion noted, with an estimated 1-39% stenosis. * There is a left proximal internal carotid artery mildly obstructive lesion noted, with an estimated 1-39% stenosis. * There is a right proximal external carotid artery lesion with >50% stenosis. * Antegrade flow visualized in the bilateral vertebral artery. Narrative Procedure Note Monster Jiménez, DO - 06/22/2025 IMPRESSION Conclusions * There is a right proximal internal carotid artery mildly obstructive lesion noted, with an estimated 1-39% stenosis. * There is a left proximal internal carotid artery mildly obstructivelesion noted, with an estimated 1-39% stenosis. * There is a right proximal external carotid artery lesion with >50% stenosis. * Antegrade flow visualized in the bilateral vertebral artery. Heather Shepherd Jr., MD IMG VASCULAR ORDERABLE S Final Result * ECG AND WAVEFORMS - TELEMETRY (06/21/2025 6:55 AM EDT) Only the most recent of3 resultswithin the time period is included. Pathologist [facility] ECG INTERPRET NSR with PVCs [facility] 06/21/2025 6:55 AM EDT Narrative [facility] - 06/21/2025 7:06 AM EDT KW ROUTINE - PVCS HI 0.14 QRS 0.12 RR 0.73 QT 0.38 QTc 0.44 See Clinical Report link for waveform capture us Unknown Provider POINT OF CARE CARDIOLOGY Final Result [facility] [address] [place] [id number] * (ABNORMAL) BASIC METABOLIC PANEL (06/21/2025 6:34 AM EDT) Pathologist [facility] Sodium 135(L) 136 - 145 mmol/L 06/21/2025 7:39 AM EDT [facility] Potassium 3.6 3.5 - 5.0 mmol/L 06/21/2025 7:39 AM EDT [facility] Chloride 100 98 - 107 mmol/L 06/21/2025 7:39 AM EDT [facility] Total CO2 20(L) 22 - 29 mmol/L 06/21/2025 7:39 AM EDT [facility] Anion Gap 15 7 - 16 mmol/L 06/21/2025 7:39 AM EDT [facility] Calcium 9.5 8.8 - 10.4 mg/dL 06/21/2025 7:39 AM EDT [facility] Glucose Lvl 150(H) 70 - 99 mg/dL 06/21/2025 7:39 AM EDT [facility] BUN 25(H) 8 - 23 mg/dL 06/21/2025 7:39 AM EDT [facility] Creatinine 0.96 0.67 - 1.30 mg/dL 06/21/2025 7:39 AM EDT [facility] eGFR (CKD-EPIcr 2020) 87 >=60 mL/min/1.7 3 m2 06/21/2025 7:39 AM EDT [facility] Comment:Estimated GFR was ca lculated using the CKD-EPIcr (2020) equation refit without race. The equation is recommended by the National Kidney Foundation - [place] [employer] of Nephrology Task Force. Blood VENOUS BLOOD / Unknown Venipuncture / Unknown 06/21/2025 6:34 AM EDT 06/21/2025 7:07 AM EDT us Heather Shepherd Jr., MD CHEMISTRY ORDERABLES F inal Result [facility] [employer] [address] [facility] , [place] [place] [address] from Last 3 Months Insurance [employer] MEDICARE PPO [employer] MEDIC[employer] PPO [employer] Advance Directives For more information, please contact: [phone] * Full Code (Latest Code Status on File) Date Activated Date Inactivated Comments 06/16/2025 11:25 AM 06/23/2025 3:31 PM * Full Code Date Activated Date Inactivated Comments 06/16/2025 10:45 AM 06/16/2025 11:25 AM Care Teams Admissions Gate Attendant Relationship Specialty Start Date End Date Roberto Osborne MD [address] [facility] [address] [place] [id number] PCP - General Internal Medicine 06/16/25
== END 2025-09-19 23:59 | disposition home or self-care (01) ==
LOC: RAD 06:46
PROVIDERS: PCP Internal Medicine; Visit Provider Nurse Practitioner
DX: G31.9 Degenerative disease of nervous system, unspecified (principal); S06.5XAA Traumatic subdural hemorrhage with loss of consciousness status unknown, initial encounter
CPT/HCPCS: 70450